=== PATIENT | female | born 1985 | race Caucasian/White ===

== ENCOUNTER 2019-07-02 23:41 | Emergency (ER) | payer OTHER ==
[~2019-07-02] VITALS: Ht 162.6 cm; Wt 95.0 kg
[2019-07-02 23:41] VITALS: BP 128/58
[2019-07-03] MEDS ORDERED: LIDOCAINE 2% W/ EPINEPHRINE 1.7 ML DENTAL INJ SM ONE (01:45)
[2019-07-03] MEDS ORDERED: AUGMENTIN 875 MG TAB PO ONE (01:45)
[2019-07-03] MEDS ORDERED: AUGM875T28 PO (01:59)
[2019-07-03] MEDS ORDERED: KETO10TAB PO (01:59)
[2019-07-03] MEDS ORDERED: ACETAMINOPHEN 325 MG TAB PO ONE (02:30)
[2019-07-03] MEDS ORDERED: KETOROLAC TROMETHAMINE 10 MG TAB PO ONE (02:30)
== END 2019-07-03 02:37 | disposition home or self-care (01) ==
LOC: M ED 23:41
DX: K02.9 Dental caries, unspecified (principal); K08.89 Other specified disorders of teeth and supporting structures; F17.200 Nicotine dependence, unspecified, uncomplicated; Z88.1 Allergy status to other antibiotic agents

== ENCOUNTER → 2023-06-28 | Outpatient (CLI) | payer OTHER ==
[~2023-06-28] MED LIST: AUGM875T28 PO; KETO10TAB PO
[2023-06-28 09:17] LABS: HEMATOCRIT 42.1 % (36.0-47.0); HEMOGLOBIN 13.1 g/dl (12.0-15.5); MEAN CORPUSCULAR HEMOGLOBIN 31.8 pg (27.0-33.0); MEAN CORPUSCULAR HGB CONC 31.1 g/dl (32.0-36.5); MEAN CORPUSCULAR VOLUME 102.2 fl (80.0-96.0); PLATELET COUNT, AUTOMATED 196 10^3/uL (150-450); RED BLOOD COUNT 4.12 10^6/uL (4.00-5.40); WHITE BLOOD COUNT 6.1 10^3/uL (4.0-10.0)
[2023-06-28 09:46] LABS: POTASSIUM SERUM 3.8 MMOL/L (3.5-5.1)
== END ==
LOC: M LAB 08:40
PROVIDERS: ATTEND Orthopaedic Surgery
DX: Z01.818 Encounter for other preprocedural examination (principal)

== ENCOUNTER → 2023-07-01 | Outpatient (CLI) | payer OTHER | LOC: M RAD 12:14 | PROVIDERS: ATTEND Orthopaedic Surgery | DX: Z01.818 Encounter for other preprocedural examination (principal); M16.12 Unilateral primary osteoarthritis, left hip ==

== ENCOUNTER 2023-10-25 08:55 | Inpatient (IN) | payer OTHER ==
[2023-10-25] VITALS (16 sets, daily range): BP systolic 123–151; BP diastolic 62–84; TEMP 97.5–98.4; O2SAT 96–100
[~2023-10-25] VITALS: Ht 162.6 cm; Wt 84.5 kg
[2023-10-25] MEDS: MOM 30ML SUSPENSION UDC PO SCH (09:00)
[2023-10-25] MEDS: ceFAZolin SOD 2 GM in IV 1 EA IV ONE (09:20)
[2023-10-25] MEDS ORDERED: ISOVUE-370 76% 100ML VIAL As Ordered ONE (09:20)
[2023-10-25 09:28] LABS: VENOUS BASE EXCESS -0.5 (-2.0-2.0); VENOUS HCO3 25.6 MMOL/L (23.0-27.0); VENOUS O2 SATURATION 38.3 % (60.0-80.0); VENOUS PARTIAL PRESSURE CO2 47.7 mmHg (38.0-50.0); VENOUS PARTIAL PRESSURE O2 20.7 mmHg (30.0-50.0); VENOUS PH 7.348 UNITS (7.330-7.430); VENOUS STANDARD HCO3 22.6 MMOL/L; VENOUS TOTAL CO2 27.1 MMOL/L (24.0-28.0)
[2023-10-25 09:32] LABS: BASO % 0.3 % (0.0-1.0); EOS # 0.3 10^3/uL (0.0-0.5); HEMATOCRIT 43.6 % (36.0-47.0); HEMOGLOBIN 13.5 g/dl (12.0-15.5); LYMPH # 3.1 10^3/uL (1.5-5.0); LYMPH % 33.8 % (24.0-44.0); MEAN CORPUSCULAR VOLUME 100.2 fl (80.0-96.0); MONO # 0.5 10^3/uL (0.0-0.8); MONO % 5.4 % (2.0-8.0); NEUTROPHILS # 5.2 10^3/uL (1.5-8.5); NEUTROPHILS % 57.2 % (36.0-66.0); PLATELET COUNT, AUTOMATED 267 10^3/uL (150-450); RED BLOOD COUNT 4.35 10^6/uL (4.00-5.40); WHITE BLOOD COUNT 9.1 10^3/uL (4.0-10.0)
[2023-10-25 09:43] LABS: INR 0.97; PROTHROMBIN TIME 12.6 SECONDS (12.5-14.5)
[2023-10-25 09:44] LABS: PARTIAL THROMBOPLASTIN TIME 24.5 SECONDS (24.8-34.2)
[2023-10-25 09:57] LABS: ALBUMIN 3.8 G/DL (3.2-5.2); ALKALINE PHOSPHATASE 88 U/L (46-116); ALT/SGPT 22 U/L (7.0-40); AST/SGOT 16 U/L (<34); BILIRUBIN,DIRECT < 0.1 MG/DL (<0.4); BILIRUBIN,TOTAL 0.2 MG/DL (0.3-1.2); BLOOD UREA NITROGEN 12 MG/DL (9-23); CALCIUM LEVEL 9.3 MG/DL (8.5-10.1); CARBON DIOXIDE LEVEL 28 MMOL/L (20-31); CHLORIDE LEVEL 106 MMOL/L (98-107); CREATININE FOR GFR 0.76 MG/DL (0.55-1.30); GLOMERULAR FILTRATION RATE > 60.0 (>60); GLUCOSE, FASTING 135 MG/DL (60-100); POTASSIUM SERUM 4.4 MMOL/L (3.5-5.1); SODIUM LEVEL 140 MMOL/L (136-145); TOTAL PROTEIN 7.2 G/DL (5.7-8.2)
[2023-10-25] MEDS ORDERED: BISACODYL 10MG SUPP PR PRN (10:05)
[2023-10-25] MEDS ORDERED: LEVALBUTEROL 1.25MG 0.5ML CONCENTRATE NEB NEB PRN (10:05)
[2023-10-25] MEDS ORDERED: ACETAMINOPHEN TAB 650MG DOSE (2X325MG) PO PRN (10:05)
[2023-10-25] MEDS: LIDOCAINE 1% MDV 20ML VIAL SC STA (10:18)
[2023-10-25] MEDS ORDERED: MIDAZOLAM INJ 2MG/2ML VIAL As Ordered ONE (10:46)
[2023-10-25] MEDS ORDERED: LIDOCAINE 1% MDV 20ML VIAL As Ordered ONE (10:55)
[2023-10-25] MEDS ORDERED: MORPHINE 2 MG/ML 1ML VIAL As Ordered ONE (11:03)
[2023-10-25] MEDS ORDERED: MORPHINE 4 MG/ML 1ML VIAL IV PRN (11:10)
[2023-10-25] MEDS: MIDAZOLAM INJ 2MG/2ML VIAL IV STA ×2 (11:30)
[2023-10-25] MEDS: MORPHINE 4 MG/ML 1ML VIAL IV ONE (11:31)
[2023-10-25] MEDS: KETOROLAC 30 MG/ML 1ML VIAL IV ONE (11:34)
[2023-10-25 12:16] LABS: HEMATOCRIT 38.6 % (36.0-47.0); HEMOGLOBIN 12.1 g/dl (12.0-15.5)
[2023-10-25] MEDS: KETOROLAC 30 MG/ML 1ML VIAL IV SCH (12:34)
[2023-10-25] MEDS: KCL 20MEQ IN D5/NS 1000ML 1,000 ML IV SCH (12:35)
[2023-10-25] MEDS: PERCOCET 5MG/325MG TAB PO PRN ×2 (12:35→16:19)
[2023-10-25 13:02] LABS: ABG BASE EXCESS -3.3 (-2.0-2.0); ABG HCO3 22.1 MMOL/L (22.0-26.0); ABG O2 SATURATION 94.5 % (95.0-99.0); ABG PARTIAL PRESSURE CO2 40.8 mmHg (35.0-45.0); ABG PARTIAL PRESSURE O2 69.2 mmHg (75.0-100.0); ABG STANDARD HCO3 21.7 MMOL/L. (22.0-26.0); ABG TOTAL CO2 23.3 MMOL/L (22.0-29.0); ABG pH (ARTERIAL) 7.351 UNITS (7.350-7.450)
[2023-10-25] MEDS: LEVALBUTEROL 1.25MG 0.5ML CONCENTRATE NEB NEB SCH (13:44)
[2023-10-25] MEDS: ONDANSETRON 4MG 2ML VIAL IV PRN (15:23)
[2023-10-25] MEDS ORDERED: PNV,1TAB3 PO (15:54)
[2023-10-25] MEDS ORDERED: AMPH1CAP5 PO (15:54)
[2023-10-25] MEDS ORDERED: QUET1TAB17 PO (15:54)
[2023-10-25] MEDS ORDERED: D 50CAP2 PO (15:54)
[2023-10-25] MEDS ORDERED: FERR325T19 PO (15:54)
[2023-10-25] MEDS ORDERED: HOME MED LIST COMPLETE! XX SCH (15:55)
[2023-10-25] MEDS: NICOTINE 21MG/24HR 1 EA TRANSDERMAL TD SCH (16:01)
[2023-10-25] MEDS: ceFAZolin SOD 1 GM in D5W MINI-BAG PLUS 50 ML IV SCH (16:20)
[2023-10-25 17:42] LABS: APPEARANCE, URINE HAZY (CLEAR); BACTERIA, URINE AUTO NEGATIVE (NEGATIVE); BILIRUBIN, URINE AUTO NEGATIVE (NEGATIVE); BLOOD, URINE BLOOD NEGATIVE (NEGATIVE); COLOR, URINE AMBER (YELLOW); GLUCOSE, URINE (UA) AUTO NEGATIVE (NEGATIVE); KETONE, URINE AUTO TRACE mg/dL (NEGATIVE); LEUKOCYTE ESTERASE, URINE AUTO NEGATIVE (NEGATIVE); MUCUS, URINE SMALL (NEGATIVE); NITRITE, URINE AUTO NEGATIVE (NEGATIVE); PROTEIN, URINE AUTO 1+ mg/dL (NEGATIVE); RBC, URINE AUTO 3 /HPF (0-3); SQUAMOUS EPITHELIAL CELL UR AU 5 /HPF (0-6); UROBILINOGEN, URINE AUTO 0.2 mg/dL (0.0-2.0); WBC, URINE AUTO 0 /HPF (0-3)
[2023-10-25 18:03] LABS: SPECIFIC GRAVITY URINE AUTO >1.060 (1.002-1.035)
[2023-10-25] MEDS: HEPARIN SOD (PORCINE) 5000UNITS/ML 1ML VIAL/SYRINGE SC SCH (20:29)
[2023-10-25] MEDS: QUEtiapine FUMARATE 25 MG TAB PO SCH (20:29)
[2023-10-25] MEDS: DOCUSATE SODIUM 100MG CAPSULE PO SCH (20:29)
[2023-10-25] MEDS ORDERED: LORazepam 1 MG TAB PO SCH (21:00)
[2023-10-25] MEDS: ALPRAZolam 0.5 MG TAB PO PRN (21:35)
[2023-10-26] VITALS: BP 112/58; TEMP 97.3; O2SAT 98
[2023-10-26 04:00] VITALS: BP 130/63; TEMP 97.4; O2SAT 97
[2023-10-26 04:49] LABS: EOS # 0.1 10^3/uL (0.0-0.5); EOS % 1.4 % (0.0-3.0); LYMPH # 1.7 10^3/uL (1.5-5.0); LYMPH % 29.5 % (24.0-44.0); MEAN CORPUSCULAR HEMOGLOBIN 31.6 pg (27.0-33.0); MEAN CORPUSCULAR HGB CONC 31.9 g/dl (32.0-36.5); MONO # 0.3 10^3/uL (0.0-0.8); MONO % 5.9 % (2.0-8.0); NEUTROPHILS # 3.6 10^3/uL (1.5-8.5); NEUTROPHILS % 62.9 % (36.0-66.0); RED BLOOD COUNT 3.13 10^6/uL (4.00-5.40); WHITE BLOOD COUNT 5.8 10^3/uL (4.0-10.0)
[2023-10-26 04:58] LABS: HEMOGLOBIN 9.9 g/dl (12.0-15.5); PLATELET COUNT, AUTOMATED 150 10^3/uL (150-450)
[2023-10-26 05:15] LABS: BLOOD UREA NITROGEN 10 MG/DL (9-23); CALCIUM LEVEL 7.7 MG/DL (8.5-10.1); CARBON DIOXIDE LEVEL 28 MMOL/L (20-31); CHLORIDE LEVEL 110 MMOL/L (98-107); CREATININE FOR GFR 0.68 MG/DL (0.55-1.30); GLOMERULAR FILTRATION RATE > 60.0 (>60); GLUCOSE, FASTING 102 MG/DL (60-100); POTASSIUM SERUM 4.4 MMOL/L (3.5-5.1); SODIUM LEVEL 141 MMOL/L (136-145)
[2023-10-26 05:55] LABS: ABG BASE EXCESS 0.8 (-2.0-2.0); ABG HCO3 25.9 MMOL/L (22.0-26.0); ABG O2 SATURATION 98.4 % (95.0-99.0); ABG PARTIAL PRESSURE CO2 43.7 mmHg (35.0-45.0); ABG PARTIAL PRESSURE O2 124.7 mmHg (75.0-100.0); ABG STANDARD HCO3 25.2 MMOL/L. (22.0-26.0); ABG TOTAL CO2 27.3 MMOL/L (22.0-29.0); ABG pH (ARTERIAL) 7.391 UNITS (7.350-7.450)
[2023-10-26 08:00] VITALS: BP 132/67; TEMP 98.4; O2SAT 97
[2023-10-26] MEDS: FERROUS SULFATE 325MG TAB PO SCH (08:02)
[2023-10-26] MEDS: PANTOPRAZOLE 40MG TAB (PROTONIX) PO SCH (08:02)
[2023-10-26 12:00] VITALS: BP 131/62; TEMP 98.1; O2SAT 97
[2023-10-26 13:00] LABS: HEMATOCRIT 32.9 % (36.0-47.0); HEMOGLOBIN 10.4 g/dl (12.0-15.5)
[2023-10-26 16:42] VITALS: BP 133/65; TEMP 98.2; O2SAT 100
[2023-10-26 20:24] VITALS: BP 144/84; TEMP 97.5; O2SAT 99
[2023-10-27 01:41] VITALS: BP 136/56; TEMP 96.6; O2SAT 97
[2023-10-27 06:00] VITALS: BP 111/67; TEMP 97.9; O2SAT 99
[2023-10-27 06:25] LABS: BASO % 0.5 % (0.0-1.0); EOS # 0.1 10^3/uL (0.0-0.5); EOS % 3.1 % (0.0-3.0); HEMATOCRIT 28.6 % (36.0-47.0); HEMOGLOBIN 8.9 g/dl (12.0-15.5); LYMPH # 1.4 10^3/uL (1.5-5.0); LYMPH % 35.3 % (24.0-44.0); MEAN CORPUSCULAR HEMOGLOBIN 30.8 pg (27.0-33.0); MEAN CORPUSCULAR HGB CONC 31.1 g/dl (32.0-36.5); MONO # 0.2 10^3/uL (0.0-0.8); MONO % 6.1 % (2.0-8.0); NEUTROPHILS # 2.1 10^3/uL (1.5-8.5); NEUTROPHILS % 54.7 % (36.0-66.0); PLATELET COUNT, AUTOMATED 130 10^3/uL (150-450); RED BLOOD COUNT 2.89 10^6/uL (4.00-5.40); WHITE BLOOD COUNT 3.9 10^3/uL (4.0-10.0)
[2023-10-27 06:26] LABS: BLOOD UREA NITROGEN 15 MG/DL (9-23); CARBON DIOXIDE LEVEL 28 MMOL/L (20-31); CHLORIDE LEVEL 109 MMOL/L (98-107); GLOMERULAR FILTRATION RATE > 60.0 (>60); GLUCOSE, FASTING 92 MG/DL (60-100); POTASSIUM SERUM 4.3 MMOL/L (3.5-5.1); SODIUM LEVEL 140 MMOL/L (136-145)
[2023-10-27] MEDS ORDERED: XANA0.5T PO (09:29)
[2023-10-27 10:00] VITALS: BP 119/69; TEMP 98.2; O2SAT 99
[2023-10-27 10:39] LABS: HEMATOCRIT 32.3 % (36.0-47.0); HEMOGLOBIN 10.3 g/dl (12.0-15.5)
== END 2023-10-27 11:14 | disposition home or self-care (01) | DRG 200 ==
LOC: M ED 08:55 → EDBD 08:55 → M ED INP 10:02 → ENRESERV 10:22 → M ICU 11:05 → M MSPAV 10-26 16:13
PROVIDERS: ADMIT Thoracic Surgery (Cardiothoracic Vascular Surgery); ATTEND Surgery
PROC: 0W9B30Z Drainage of Left Pleural Cavity with Drainage Device, Percutaneous Approach (ICD-10-PCS; principal; 2023-10-25)
DX: S27.2XXA Traumatic hemopneumothorax, initial encounter (principal); S27.321A Contusion of lung, unilateral, initial encounter; F43.10 Post-traumatic stress disorder, unspecified; X99.1XXA Assault by knife, initial encounter; Y92.009 Unspecified place in unspecified non-institutional (private) residence as the place of occurrence of the external cause; Z88.8 Allergy status to other drugs, medicaments and biological substances; Z96.642 Presence of left artificial hip joint; T79.7XXA Traumatic subcutaneous emphysema, initial encounter; F17.210 Nicotine dependence, cigarettes, uncomplicated; F12.90 Cannabis use, unspecified, uncomplicated; Z79.899 Other long term (current) drug therapy; F41.9 Anxiety disorder, unspecified; D62 Acute posthemorrhagic anemia

== ENCOUNTER → 2023-11-04 | Outpatient (CLI) | payer OTHER ==
[~2023-11-04] MED LIST changes: +AMPH1CAP5 PO; +D 50CAP2 PO; +FERR325T19 PO; +PNV,1TAB3 PO; +QUET1TAB17 PO; +XANA0.5T PO
[2023-11-04 11:42] LABS: HEMATOCRIT 32.7 % (36.0-47.0); HEMOGLOBIN 10.2 g/dl (12.0-15.5); MEAN CORPUSCULAR HEMOGLOBIN 31.3 pg (27.0-33.0); MEAN CORPUSCULAR HGB CONC 31.2 g/dl (32.0-36.5); MEAN CORPUSCULAR VOLUME 100.3 fl (80.0-96.0); PLATELET COUNT, AUTOMATED 209 10^3/uL (150-450); RED BLOOD COUNT 3.26 10^6/uL (4.00-5.40); WHITE BLOOD COUNT 6.8 10^3/uL (4.0-10.0)
== END ==
LOC: M RAD 10:06
PROVIDERS: ATTEND Surgery
DX: S21.202D Unspecified open wound of left back wall of thorax without penetration into thoracic cavity, subsequent encounter (principal)

== ENCOUNTER → 2025-02-04 | Outpatient (CLI) | payer OTHER | LOC: M CARPUL 08:07 | PROVIDERS: ATTEND Internal Medicine | DX: S27 Injury of other and unspecified intrathoracic organs (principal) ==